=== PATIENT | male | born 1990 | race Caucasian/White ===

== ENCOUNTER 2016-09-19 06:41 | Emergency (ER) | payer MEDICAID ==
[2016-09-19 07:34] LABS: BASOPHIL % 0.4 % (0-2); PLATELET COUNT 351 x10^3mcL (130-400); RED CELL DISTRIBUTION WIDTH 14.2 % (11.5-14.5)
[2016-09-19 07:58] LABS: ALBUMIN 4.2 g/dL (3.4-5.0); ALKALINE PHOSPHATASE 58 U/L (46-116); ALT/SGPT 39 U/L (16-63); AST/SGOT 27 U/L (15-37); BILIRUBIN TOTAL 0.76 mg/dL (0.20-1.00); CALCIUM 9.6 mg/dL (8.5-10.1); CARBON DIOXIDE 25.7 mmol/L (21-32); CHLORIDE SERUM 101 mmol/L (98-107); CREATININE SERUM 0.8 mg/dL (0.7-1.3); GFR1 > 60 mL/min; GLUCOSE SERUM 93 mg/dL (74-106); LIPASE 129 IU/L (73-393); MAGNESIUM 1.8 mg/dL (1.8-2.4); POTASSIUM SERUM 3.7 mmol/L (3.5-5.1); SODIUM SERUM 137 mmol/L (136-145); TOTAL PROTEIN, SERUM 7.5 g/dL (6.4-8.2)
[2016-09-19 08:11] LABS: AMPHETAMINE QUAL UR NONE DETECTED (NEG <=1000)
[2016-09-19 09:11] VITALS: BP 137/81
== END 2016-09-19 09:11 | disposition home or self-care (01) ==
LOC: ED 06:41
PROVIDERS: Emergency Medicine
DX: F41.9 Anxiety disorder, unspecified (principal); R10.13 Epigastric pain; J45.909 Unspecified asthma, uncomplicated; F10.129 Alcohol abuse with intoxication, unspecified
CPT/HCPCS: G0480; J2405; J3490

== ENCOUNTER 2017-01-04 12:40 | Emergency (ER) | payer MEDICAID ==
[~2017-01-04] VITALS: Ht 165.1 cm; Wt 99.3 kg
[2017-01-04 13:59] LABS: BASOPHIL % 0.6 % (0-2); PLATELET COUNT 359 x10^3mcL (130-400); RED CELL DISTRIBUTION WIDTH 13.2 % (11.5-14.5)
[2017-01-04 14:06] LABS: CALCIUM 8.9 mg/dL (8.5-10.1); CARBON DIOXIDE 28.8 mmol/L (21-32); CHLORIDE SERUM 96 mmol/L (98-107); CREATININE SERUM 0.8 mg/dL (0.7-1.3); GFR1 > 60 mL/min; GLUCOSE SERUM 93 mg/dL (74-106); POTASSIUM SERUM 3.5 mmol/L (3.5-5.1); SODIUM SERUM 135 mmol/L (136-145)
[2017-01-04 14:10] LABS: ALBUMIN 4.2 g/dL (3.4-5.0); ALKALINE PHOSPHATASE 64 U/L (46-116); ALT/SGPT 39 U/L (16-63); AST/SGOT 43 U/L (15-37); BILIRUBIN TOTAL 1.8 mg/dL (0.20-1.00); TOTAL PROTEIN, SERUM 7.9 g/dL (6.4-8.2)
[2017-01-04 15:55] VITALS: BP 118/75
== END 2017-01-04 15:55 | disposition home or self-care (01) ==
LOC: ED 12:40
PROVIDERS: Emergency Medicine
DX: F10.129 Alcohol abuse with intoxication, unspecified (principal)
CPT/HCPCS: G0480; J2060; J2405; J3411; J3475; J3490; J7030

== ENCOUNTER 2017-02-08 20:44 | Inpatient (IN) | payer MEDICAID ==
[~2017-02-08] VITALS: Ht 165.1 cm; Wt 119.4 kg
[2017-02-08 23:33] LABS: BASOPHIL % 0.4 % (0-2); PLATELET COUNT 382 x10^3mcL (130-400); RED CELL DISTRIBUTION WIDTH 14.1 % (11.5-14.5)
[2017-02-08 23:42] LABS: CALCIUM 8.6 mg/dL (8.5-10.1); CARBON DIOXIDE 26.2 mmol/L (21-32); CHLORIDE SERUM 100 mmol/L (98-107); CREATININE SERUM 0.8 mg/dL (0.7-1.3); GFR1 > 60 mL/min; GLUCOSE SERUM 146 mg/dL (74-106); POTASSIUM SERUM 3.7 mmol/L (3.5-5.1); SODIUM SERUM 139 mmol/L (136-145)
[2017-02-08 23:46] LABS: ALBUMIN 4.4 g/dL (3.4-5.0); ALKALINE PHOSPHATASE 74 U/L (46-116); ALT/SGPT 45 U/L (16-63); AST/SGOT 34 U/L (15-37); BILIRUBIN TOTAL 0.7 mg/dL (0.20-1.00); LIPASE 167 IU/L (73-393); MAGNESIUM 2.3 mg/dL (1.8-2.4)
[2017-02-08 23:49] LABS: TOTAL PROTEIN, SERUM 8.4 g/dL (6.4-8.2)
[2017-02-09 02:32] LABS: UA SPECIFIC GRAVITY >=1.030 (1.005-1.035); microscopic required? YES; urine erythrocyte 1+ (NEGATIVE)
[2017-02-09 02:42] LABS: AMPHETAMINE QUAL UR NONE DETECTED (NEG <=1000)
[2017-02-09] MEDS ORDERED: ATIVAN1 MG PO (05:34)
[2017-02-09 08:29] VITALS: BP 137/73
[2017-02-09 08:32] VITALS: BP 120/60
[2017-02-09 12:56] VITALS: BP 129/64
[2017-02-09 17:14] VITALS: BP 114/70
[2017-02-09 21:03] VITALS: BP 126/69
[2017-02-10 05:56] VITALS: BP 120/78
[2017-02-10 05:57] LABS: BASOPHIL % 0.5 % (0-2); PLATELET COUNT 321 x10^3mcL (130-400)
[2017-02-10 06:17] LABS: CALCIUM 8.7 mg/dL (8.5-10.1); CARBON DIOXIDE 28.7 mmol/L (21-32); CHLORIDE SERUM 103 mmol/L (98-107); CREATININE SERUM 0.7 mg/dL (0.7-1.3); GFR1 > 60 mL/min; GLUCOSE SERUM 90 mg/dL (74-106); MAGNESIUM 2.2 mg/dL (1.8-2.4); POTASSIUM SERUM 3.9 mmol/L (3.5-5.1); SODIUM SERUM 139 mmol/L (136-145)
[2017-02-10 08:55] VITALS: BP 129/77
[2017-02-10 13:00] VITALS: BP 133/79
[2017-02-10 16:46] VITALS: BP 138/89
[2017-02-10] MEDS ORDERED: THERAGRAN-M1 TA4 PO (17:19)
[2017-02-10] MEDS ORDERED: THI100 PO (17:19)
[2017-02-10] MEDS ORDERED: FOL1 PO (17:19)
[2017-02-10] MEDS ORDERED: FLUOXETINE HYDR10 M1 PO (17:20)
[2017-02-10] MEDS ORDERED: BUSPIRONE HCL5 MG PO (17:21)
[2017-02-10] MEDS ORDERED: ATI1 PO (17:24)
[2017-02-10 18:39] VITALS: BP 138/89
== END 2017-02-10 20:37 | disposition home or self-care (01) | DRG 203 ==
LOC: ED 20:44 → DU 02-09 05:25 → ED 02-09 05:53 → DU 02-09 06:35
PROVIDERS: Emergency Medicine; ADMIT Family Medicine
DX: M94.0 Chondrocostal junction syndrome [Tietze] (principal); N17.0 Acute kidney failure with tubular necrosis; F10.239 Alcohol dependence with withdrawal, unspecified; E87.2 Acidosis; F41.9 Anxiety disorder, unspecified; Z68.41 Body mass index [BMI] 40.0-44.9, adult; E66.01 Morbid (severe) obesity due to excess calories
CPT/HCPCS: 83880; G0480; J2060; J2405; J3490; J7030

== ENCOUNTER 2017-05-18 21:48 | Inpatient (IN) | payer MEDICAID ==
[~2017-05-18] VITALS: Ht 165.1 cm; Wt 98.0 kg
[~2017-05-18 21:48] MED LIST: ATI1 PO; ATIVAN1 MG PO; BUSPIRONE HCL5 MG PO; FLUOXETINE HYDR10 M1 PO; FOL1 PO; THERAGRAN-M1 TA4 PO; THI100 PO
[2017-05-18 23:09] LABS: BASOPHIL % 0.5 % (0-2); PLATELET COUNT 309 x10^3mcL (130-400); RED CELL DISTRIBUTION WIDTH 13.1 % (11.5-14.5)
[2017-05-18 23:14] LABS: CALCIUM 8.5 mg/dL (8.5-10.1); CARBON DIOXIDE 28.3 mmol/L (21-32); CHLORIDE SERUM 102 mmol/L (98-107); CREATININE SERUM 0.7 mg/dL (0.7-1.3); GFR1 > 60 mL/min; GLUCOSE SERUM 114 mg/dL (74-106); POTASSIUM SERUM 3.6 mmol/L (3.5-5.1); SODIUM SERUM 144 mmol/L (136-145)
[2017-05-18 23:25] LABS: ALKALINE PHOSPHATASE 73 U/L (46-116); ALT/SGPT 37 U/L (16-63); AST/SGOT 33 U/L (15-37); BILIRUBIN TOTAL 0.88 mg/dL (0.20-1.00); TOTAL PROTEIN, SERUM 7.6 g/dL (6.4-8.2)
[2017-05-18 23:28] LABS: T3 TOTAL 0.84 ng/mL
[2017-05-18 23:40] LABS: C REACTIVE PROTEIN < 0.2 mg/dL (<=0.9)
[2017-05-18 23:42] LABS: FREE T4 0.95 ng/dL (0.76-1.46); FREE THYROXINE INDEX 2.7 ug/dL (1.4-4.5)
[2017-05-18 23:58] LABS: CK-MB 1.2 ng/mL (0-3.6)
[2017-05-19] MEDS ORDERED: ZOLOFT25 MG PO (00:38)
[2017-05-19 00:58] LABS: ERYTHROCYTE SED RATE 9 mm/hr (0-15)
[2017-05-19 01:35] VITALS: BP 120/76
[2017-05-19 02:00] LABS: UA SPECIFIC GRAVITY 1.025 (1.005-1.035); microscopic required? YES; urine erythrocyte TRACE (NEGATIVE)
[2017-05-19 02:10] LABS: MAGNESIUM 2.1 mg/dL (1.8-2.4); PHOSPHOROUS 3.4 mg/dL (2.5-4.9)
[2017-05-19 02:21] LABS: AMPHETAMINE QUAL UR NONE DETECTED (NEG <=1000)
[2017-05-19 05:48] VITALS: BP 118/67
[2017-05-19 06:41] LABS: CARBON DIOXIDE 26.3 mmol/L (21-32); CHLORIDE SERUM 104 mmol/L (98-107); CREATININE SERUM 0.6 mg/dL (0.7-1.3); GFR1 > 60 mL/min; GLUCOSE SERUM 89 mg/dL (74-106); MAGNESIUM 2.1 mg/dL (1.8-2.4); PHOSPHOROUS 3.3 mg/dL (2.5-4.9); POTASSIUM SERUM 3.4 mmol/L (3.5-5.1); SODIUM SERUM 142 mmol/L (136-145)
[2017-05-19 07:01] LABS: BASOPHIL % 0.3 % (0-2); PLATELET COUNT 274 x10^3mcL (130-400); RED CELL DISTRIBUTION WIDTH 12.9 % (11.5-14.5)
[2017-05-19 09:24] VITALS: BP 114/71
[2017-05-19 14:36] VITALS: BP 125/64
[2017-05-19 17:39] VITALS: BP 114/63
[2017-05-19 21:10] VITALS: BP 157/90
[2017-05-20 05:36] VITALS: BP 123/80
[2017-05-20 06:52] LABS: BASOPHIL % 0.3 % (0-2); PLATELET COUNT 241 x10^3mcL (130-400); RED CELL DISTRIBUTION WIDTH 12.9 % (11.5-14.5)
[2017-05-20 06:53] LABS: CALCIUM 8.8 mg/dL (8.5-10.1); CARBON DIOXIDE 26.2 mmol/L (21-32); CHLORIDE SERUM 102 mmol/L (98-107); CREATININE SERUM 0.7 mg/dL (0.7-1.3); GFR1 > 60 mL/min; GLUCOSE SERUM 83 mg/dL (74-106); MAGNESIUM 2.1 mg/dL (1.8-2.4); PHOSPHOROUS 3.5 mg/dL (2.5-4.9); POTASSIUM SERUM 3.5 mmol/L (3.5-5.1); SODIUM SERUM 139 mmol/L (136-145)
[2017-05-20 08:35] VITALS: BP 135/84
[2017-05-20 11:13] VITALS: Ht 165.1 cm; Wt 98.0 kg
[2017-05-20 11:33] VITALS: BP 135/84
[2017-05-20] MEDS ORDERED: THI100 PO (13:22)
[2017-05-20] MEDS ORDERED: FOL1 PO (13:22)
[2017-05-20] MEDS ORDERED: THERAGRAN-M1 TA4 PO (13:23)
[2017-05-20] MEDS ORDERED: LORAZEPAM1 MG PO (13:30)
[2017-05-20 14:00] VITALS: BP 141/81
[2017-05-20 16:35] VITALS: BP 136/79
== END 2017-05-20 20:46 | disposition home or self-care (01) | DRG 816 ==
LOC: ED 21:48 → DU 05-19 00:26 → MU 05-20 19:04
PROVIDERS: Family Medicine; Specialist
DX: T51.0X1A Toxic effect of ethanol, accidental (unintentional), initial encounter (principal); G92 Toxic encephalopathy; E87.2 Acidosis; F33.1 Major depressive disorder, recurrent, moderate; F10.229 Alcohol dependence with intoxication, unspecified; F10.239 Alcohol dependence with withdrawal, unspecified; R55 Syncope and collapse; E87.6 Hypokalemia; F41.0 Panic disorder [episodic paroxysmal anxiety]; F41.1 Generalized anxiety disorder; F40.8 Other phobic anxiety disorders; E78.5 Hyperlipidemia, unspecified; E66.9 Obesity, unspecified; Z68.35 Body mass index [BMI] 35.0-35.9, adult; Y90.8 Blood alcohol level of 240 mg/100 ml or more; Y92.009 Unspecified place in unspecified non-institutional (private) residence as the place of occurrence of the external cause
CPT/HCPCS: 36600; 83880; 84439; 94150; G0480; J2060; J3411; J3475; J3490; J7030; J7620; Q0092; Q9967

== ENCOUNTER 2017-09-26 05:53 | Inpatient (IN) | payer MEDICAID ==
[~2017-09-26] VITALS: Ht 165.1 cm; Wt 97.2 kg
[~2017-09-26 05:53] MED LIST changes: +LORAZEPAM1 MG PO; +ZOLOFT25 MG PO
[2017-09-26 07:11] LABS: CALCIUM 8.6 mg/dL (8.5-10.1); CARBON DIOXIDE 27.3 mmol/L (21-32); CHLORIDE SERUM 122 mmol/L (98-107); CREATININE SERUM 0.7 mg/dL (0.7-1.3); GFR1 > 60 mL/min; GLUCOSE SERUM 87 mg/dL (74-106); POTASSIUM SERUM 4.1 mmol/L (3.5-5.1); SODIUM SERUM 141 mmol/L (136-145)
[2017-09-26 07:16] LABS: BASOPHIL % 0.2 % (0-2); PLATELET COUNT 261 x10^3mcL (130-400); RED CELL DISTRIBUTION WIDTH 12.3 % (11.5-14.5)
[2017-09-26 07:28] LABS: T3 TOTAL 1.01 ng/mL
[2017-09-26 07:36] LABS: ALBUMIN 4.4 g/dL (3.4-5.0); ALKALINE PHOSPHATASE 78 U/L (46-116); ALT/SGPT 34 U/L (16-63); AST/SGOT 41 U/L (15-37); TOTAL PROTEIN, SERUM 7.9 g/dL (6.4-8.2)
[2017-09-26 07:50] LABS: MAGNESIUM 2.4 mg/dL (1.8-2.4); PHOSPHOROUS 3.6 mg/dL (2.5-4.9)
[2017-09-26 07:51] LABS: CHOLESTEROL/HDL RATIO 3.2
[2017-09-26 07:57] VITALS: BP 136/81
[2017-09-26 07:57] LABS: FREE T4 0.84 ng/dL (0.76-1.46); FREE THYROXINE INDEX 2.5 ug/dL (1.4-4.5)
[2017-09-26 08:02] LABS: UA SPECIFIC GRAVITY >=1.030 (1.005-1.035); microscopic required? YES; urine erythrocyte 1+ (NEGATIVE)
[2017-09-26 08:15] LABS: AMPHETAMINE QUAL UR NONE DETECTED (NEG <=1000)
[2017-09-26 13:39] VITALS: BP 115/51
[2017-09-26 17:53] VITALS: BP 135/70
[2017-09-26 19:15] VITALS: BP 124/61
[2017-09-26 20:50] VITALS: BP 124/68
[2017-09-27 05:44] VITALS: BP 105/66
[2017-09-27 06:37] LABS: CALCIUM 8.1 mg/dL (8.5-10.1); CARBON DIOXIDE 24.4 mmol/L (21-32); CHLORIDE SERUM 102 mmol/L (98-107); CREATININE SERUM 0.7 mg/dL (0.7-1.3); GFR1 > 60 mL/min; GLUCOSE SERUM 89 mg/dL (74-106); MAGNESIUM 2.2 mg/dL (1.8-2.4); PHOSPHOROUS 2.8 mg/dL (2.5-4.9); POTASSIUM SERUM 3.6 mmol/L (3.5-5.1); SODIUM SERUM 138 mmol/L (136-145)
[2017-09-27 08:12] LABS: BASOPHIL % 0.2 % (0-2); PLATELET COUNT 205 x10^3mcL (130-400); RED CELL DISTRIBUTION WIDTH 12.8 % (11.5-14.5)
[2017-09-27 10:00] VITALS: BP 116/68
[2017-09-27 12:47] VITALS: BP 107/63
[2017-09-27 17:46] VITALS: BP 96/62
[2017-09-27 21:39] VITALS: BP 118/69
[2017-09-28 05:57] VITALS: BP 109/73
[2017-09-28 06:32] LABS: BASOPHIL % 0.1 % (0-2); PLATELET COUNT 191 x10^3mcL (130-400); RED CELL DISTRIBUTION WIDTH 12.9 % (11.5-14.5)
[2017-09-28 06:56] LABS: CALCIUM 8.6 mg/dL (8.5-10.1); CARBON DIOXIDE 26.1 mmol/L (21-32); CHLORIDE SERUM 107 mmol/L (98-107); CREATININE SERUM 0.7 mg/dL (0.7-1.3); GFR1 > 60 mL/min; GLUCOSE SERUM 92 mg/dL (74-106); MAGNESIUM 2.2 mg/dL (1.8-2.4); PHOSPHOROUS 3.5 mg/dL (2.5-4.9); POTASSIUM SERUM 3.8 mmol/L (3.5-5.1); SODIUM SERUM 142 mmol/L (136-145)
[2017-09-28] MEDS ORDERED: BUPROPION HCL100 MG PO (09:27)
[2017-09-28 11:00] VITALS: BP 104/61
[2017-09-28 11:53] VITALS: BP 104/61
== END 2017-09-28 13:49 | disposition home or self-care (01) | DRG 775 ==
LOC: ED 05:53 → DU 06:37 → MU 09-28 08:09
PROVIDERS: Emergency Medicine; Family Medicine
DX: F10.129 Alcohol abuse with intoxication, unspecified (principal); N17.0 Acute kidney failure with tubular necrosis; G92 Toxic encephalopathy; J45.909 Unspecified asthma, uncomplicated; F32.9 Major depressive disorder, single episode, unspecified; E86.0 Dehydration; E87.8 Other disorders of electrolyte and fluid balance, not elsewhere classified; D72.829 Elevated white blood cell count, unspecified; Y90.0 Blood alcohol level of less than 20 mg/100 ml; F41.1 Generalized anxiety disorder; R80.9 Proteinuria, unspecified; R31.9 Hematuria, unspecified; Z79.899 Other long term (current) drug therapy; Z68.35 Body mass index [BMI] 35.0-35.9, adult
CPT/HCPCS: 83880; 84439; G0480; J2060; J3411; J3475; J3490; J7030; Q0092

== ENCOUNTER 2017-10-18 12:54 | Emergency (ER) | payer MEDICAID ==
[~2017-10-18] VITALS: Ht 160 cm; Wt 97.1 kg
[~2017-10-18 12:54] MED LIST changes: +BUPROPION HCL100 MG PO
[2017-10-18 13:05] VITALS: Ht 160 cm; Wt 97.1 kg
[2017-10-18 13:48] LABS: BASOPHIL % 0.4 % (0-2); PLATELET COUNT 362 x10^3mcL (130-400); RED CELL DISTRIBUTION WIDTH 13.6 % (11.5-14.5)
[2017-10-18 13:57] LABS: CALCIUM 8.5 mg/dL (8.5-10.1); CARBON DIOXIDE 29.4 mmol/L (21-32); CHLORIDE SERUM 102 mmol/L (98-107); CREATININE SERUM 0.8 mg/dL (0.7-1.3); GFR1 > 60 mL/min; GLUCOSE SERUM 103 mg/dL (74-106); POTASSIUM SERUM 3.8 mmol/L (3.5-5.1); SODIUM SERUM 142 mmol/L (136-145)
[2017-10-18 14:07] LABS: ALBUMIN 4.1 g/dL (3.4-5.0); ALKALINE PHOSPHATASE 76 U/L (46-116); AMYLASE 46 U/L (25-115); AST/SGOT 28 U/L (15-37); BILIRUBIN TOTAL 1.2 mg/dL (0.20-1.00); HDL CHOLESTEROL 58 mg/dL (40-60); LIPASE 119 IU/L (73-393); MAGNESIUM 2.2 mg/dL (1.8-2.4); T4(THYROXINE) 6.8 ug/dL (4.7-13.3); TOTAL PROTEIN, SERUM 7.8 g/dL (6.4-8.2)
[2017-10-18 14:30] LABS: CHOLESTEROL 215 mg/dL (<200)
[2017-10-18 14:47] LABS: microscopic required? NO
[2017-10-18 14:57] LABS: UA SPECIFIC GRAVITY 1.015 (1.005-1.035); urine erythrocyte NEGATIVE (NEGATIVE)
[2017-10-18 15:09] LABS: ALT/SGPT 41 U/L (16-63)
[2017-10-18 15:54] LABS: AMPHETAMINE QUAL UR NONE DETECTED (See below)
[2017-10-18 16:03] VITALS: BP 120/74
== END 2017-10-18 16:03 | disposition home or self-care (01) ==
LOC: ED 12:54
PROVIDERS: Emergency Medicine
DX: F10.229 Alcohol dependence with intoxication, unspecified (principal); I47.1 Supraventricular tachycardia; J45.909 Unspecified asthma, uncomplicated; E66.01 Morbid (severe) obesity due to excess calories
CPT/HCPCS: 83880; G0480; J3490

== ENCOUNTER 2017-11-04 10:27 | Emergency (ER) | payer MEDICAID ==
[~2017-11-04] VITALS: Ht 165.1 cm; Wt 98.2 kg
[2017-11-04 10:35] VITALS: Ht 165.1 cm; Wt 98.2 kg
[2017-11-04 12:34] VITALS: BP 100/65
== END 2017-11-04 12:34 | disposition home or self-care (01) ==
LOC: ED 10:27
DX: F41.0 Panic disorder [episodic paroxysmal anxiety] (principal); J45.909 Unspecified asthma, uncomplicated; F10.20 Alcohol dependence, uncomplicated; E66.01 Morbid (severe) obesity due to excess calories

== ENCOUNTER 2018-02-04 16:38 | Emergency (ER) | payer MEDICAID ==
[~2018-02-04] VITALS: Ht 165.1 cm; Wt 102.7 kg
[2018-02-04 16:43] VITALS: Ht 165.1 cm; Wt 102.7 kg
[2018-02-04 17:25] LABS: BASOPHIL % 0.1 % (0-2); PLATELET COUNT 299 x10^3mcL (130-400); RED CELL DISTRIBUTION WIDTH 11.9 % (11.5-14.5)
[2018-02-04 17:41] LABS: CALCIUM 9.5 mg/dL (8.5-10.1); CARBON DIOXIDE 28.4 mmol/L (21-32); CHLORIDE SERUM 101 mmol/L (98-107); CREATININE SERUM 0.9 mg/dL (0.7-1.3); GFR1 > 60 mL/min; GLUCOSE SERUM 89 mg/dL (74-106); POTASSIUM SERUM 4.2 mmol/L (3.5-5.1); SODIUM SERUM 139 mmol/L (136-145)
[2018-02-04 17:45] LABS: ALBUMIN 4.8 g/dL (3.4-5.0); ALKALINE PHOSPHATASE 59 U/L (46-116); ALT/SGPT 32 U/L (16-63); AST/SGOT 17 U/L (15-37); BILIRUBIN TOTAL 3.08 mg/dL (0.20-1.00); LIPASE 129 IU/L (73-393)
[2018-02-04 17:58] LABS: TOTAL PROTEIN, SERUM 8.4 g/dL (6.4-8.2)
[2018-02-04 18:47] VITALS: BP 115/74
== END 2018-02-04 18:50 | disposition home or self-care (01) ==
LOC: ED 16:38
PROVIDERS: Emergency Medicine
DX: J45.909 Unspecified asthma, uncomplicated (principal); K29.00 Acute gastritis without bleeding; F41.9 Anxiety disorder, unspecified; F40.00 Agoraphobia, unspecified
CPT/HCPCS: 36415; Q0092

== ENCOUNTER 2018-03-20 00:57 | Emergency (ER) | payer MEDICAID ==
[~2018-03-20] VITALS: Ht 165.1 cm; Wt 98.9 kg
[2018-03-20 01:03] VITALS: BP 153/90; Ht 165.1 cm; Wt 98.9 kg
== END 2018-03-20 02:03 | disposition left against medical advice (07) ==
LOC: ED 00:57
DX: Z53.21 Procedure and treatment not carried out due to patient leaving prior to being seen by health care provider (principal)

== ENCOUNTER 2018-11-19 07:31 | Emergency (ER) | payer MEDICAID ==
[~2018-11-19] VITALS: Ht 165.1 cm; Wt 93.4 kg
[2018-11-19 07:35] VITALS: Ht 165.1 cm; Wt 93.4 kg
[2018-11-19 08:28] LABS: CALCIUM 9.7 mg/dL (8.5-10.1); CARBON DIOXIDE 28.4 mmol/L (21-32); CHLORIDE SERUM 100 mmol/L (98-107); CREATININE SERUM 0.7 mg/dL (0.7-1.3); GFR1 > 60 mL/min; GLUCOSE SERUM 101 mg/dL (74-106); POTASSIUM SERUM 3.6 mmol/L (3.5-5.1); SODIUM SERUM 141 mmol/L (136-145)
[2018-11-19 08:32] LABS: ALBUMIN 4.3 g/dL (3.4-5.0); ALKALINE PHOSPHATASE 80 U/L (46-116); ALT/SGPT 60 U/L (16-63); AST/SGOT 54 U/L (15-37); BILIRUBIN TOTAL 1.4 mg/dL (0.20-1.00); TOTAL PROTEIN, SERUM 7.6 g/dL (6.4-8.2)
[2018-11-19 08:34] LABS: BASOPHIL % 0.4 % (0-2); PLATELET COUNT 234 x10^3mcL (130-400); RED CELL DISTRIBUTION WIDTH 13.9 % (11.5-14.5)
[2018-11-19 09:05] LABS: AMPHETAMINE QUAL UR NONE DETECTED (See below)
[2018-11-19 16:40] VITALS: BP 127/68
== END 2018-11-19 16:40 | disposition home or self-care (01) ==
LOC: ED 07:31
PROVIDERS: Emergency Medicine
DX: F10.120 Alcohol abuse with intoxication, uncomplicated (principal); J45.909 Unspecified asthma, uncomplicated; F41.9 Anxiety disorder, unspecified; F40.00 Agoraphobia, unspecified; I47.1 Supraventricular tachycardia
CPT/HCPCS: 82962; G0480; J2060; J3411; J7030

== ENCOUNTER 2018-12-19 02:21 | Emergency (ER) | payer MEDICAID ==
[~2018-12-19] VITALS: Ht 165.1 cm; Wt 93.2 kg
[2018-12-19 07:17] VITALS: BP 119/69
== END 2018-12-19 07:17 | disposition home or self-care (01) ==
LOC: ED 02:21
DX: S61.213A Laceration without foreign body of left middle finger without damage to nail, initial encounter (principal); J45.909 Unspecified asthma, uncomplicated; F41.9 Anxiety disorder, unspecified; F10.10 Alcohol abuse, uncomplicated; Z76.0 Encounter for issue of repeat prescription; W26.0XXA Contact with knife, initial encounter; Y93.89 Activity, other specified; Y92.89 Other specified places as the place of occurrence of the external cause; Y99.8 Other external cause status
CPT/HCPCS: 90715

== ENCOUNTER 2019-03-16 05:48 | Emergency (ER) | payer MEDICAID ==
[~2019-03-16] VITALS: Ht 165.1 cm; Wt 92.1 kg
[2019-03-16 05:52] VITALS: Ht 165.1 cm; Wt 92.1 kg
[2019-03-16 06:58] VITALS: BP 114/82
== END 2019-03-16 06:58 | disposition home or self-care (01) ==
LOC: ED 05:48
DX: M25.811 Other specified joint disorders, right shoulder (principal); F41.9 Anxiety disorder, unspecified; J45.909 Unspecified asthma, uncomplicated
CPT/HCPCS: J1885

== ENCOUNTER 2019-04-17 01:54 | Emergency (ER) | payer MEDICAID ==
[~2019-04-17] VITALS: Ht 167.6 cm; Wt 92.5 kg
[2019-04-17 02:19] VITALS: Ht 167.6 cm; Wt 92.5 kg
[2019-04-17 05:49] LABS: BASOPHIL % 0.5 % (0-2); PLATELET COUNT 305 x10^3mcL (130-400); RED CELL DISTRIBUTION WIDTH 13.8 % (11.5-14.5)
[2019-04-17 06:02] LABS: CALCIUM 8.7 mg/dL (8.5-10.1); CARBON DIOXIDE 27.9 mmol/L (21-32); CHLORIDE SERUM 104 mmol/L (98-107); CREATININE SERUM 0.8 mg/dL (0.7-1.3); GFR1 > 60 mL/min; GLUCOSE SERUM 103 mg/dL (74-106); POTASSIUM SERUM 3.7 mmol/L (3.5-5.1); SODIUM SERUM 143 mmol/L (136-145)
[2019-04-17 06:06] LABS: ALBUMIN 4.2 g/dL (3.4-5.0); ALKALINE PHOSPHATASE 80 U/L (46-116); ALT/SGPT 30 U/L (16-63); AST/SGOT 20 U/L (15-37); BILIRUBIN TOTAL 0.57 mg/dL (0.20-1.00); LIPASE 162 IU/L (73-393); TOTAL PROTEIN, SERUM 7.6 g/dL (6.4-8.2)
[2019-04-17 07:36] LABS: AMPHETAMINE QUAL UR NONE DETECTED (See below)
[2019-04-17 07:47] VITALS: BP 115/58
== END 2019-04-17 07:47 | disposition home or self-care (01) ==
LOC: ED 01:54
PROVIDERS: Emergency Medicine
DX: S00.31XA Abrasion of nose, initial encounter (principal); F10.239 Alcohol dependence with withdrawal, unspecified; J45.909 Unspecified asthma, uncomplicated; W18.30XA Fall on same level, unspecified, initial encounter; Y93.89 Activity, other specified; Y92.89 Other specified places as the place of occurrence of the external cause; Y99.8 Other external cause status
CPT/HCPCS: G0480; J2060; J2405; J7030

== ENCOUNTER 2019-09-21 05:49 | Emergency (ER) | payer OTHER ==
[~2019-09-21] VITALS: Ht 165.1 cm; Wt 74.8 kg
[~2019-09-21 05:49] MED LIST changes: +NEU300 PO
[2019-09-21 06:00] VITALS: Ht 165.1 cm; Wt 74.8 kg
[2019-09-21 08:16] LABS: AMPHETAMINE QUAL UR NONE DETECTED (See below)
[2019-09-21 08:47] VITALS: BP 135/66
== END 2019-09-21 08:47 | disposition home or self-care (01) ==
LOC: ED 05:49
PROVIDERS: Emergency Medicine
DX: G92 Toxic encephalopathy (principal); J45.909 Unspecified asthma, uncomplicated
CPT/HCPCS: 36415; 82962; G0480

== ENCOUNTER 2019-11-10 06:14 | Emergency (ER) | payer OTHER ==
[~2019-11-10] VITALS: Ht 165.1 cm; Wt 91.6 kg
[2019-11-10 06:22] VITALS: Ht 165.1 cm; Wt 91.6 kg
[2019-11-10 09:29] VITALS: BP 105/54
== END 2019-11-10 09:30 | disposition home or self-care (01) ==
LOC: ED 06:14
DX: M51.27 Other intervertebral disc displacement, lumbosacral region (principal); J45.909 Unspecified asthma, uncomplicated
CPT/HCPCS: J1885; Q9967

== ENCOUNTER 2019-11-12 19:18 | Emergency (ER) | payer OTHER ==
[~2019-11-12] VITALS: Ht 154.9 cm; Wt 93.2 kg
[2019-11-12 19:29] VITALS: Ht 154.9 cm; Wt 93.2 kg
[2019-11-12 20:49] VITALS: BP 120/58
== END 2019-11-12 20:49 | disposition home or self-care (01) ==
LOC: ED 19:18
DX: R25.1 Tremor, unspecified (principal); H53.8 Other visual disturbances; R00.2 Palpitations; R20.2 Paresthesia of skin; J45.909 Unspecified asthma, uncomplicated; F10.10 Alcohol abuse, uncomplicated
CPT/HCPCS: 82962

== ENCOUNTER 2019-12-19 21:27 | Emergency (ER) | payer OTHER ==
[~2019-12-19] VITALS: Ht 165.1 cm; Wt 90.7 kg
[2019-12-19 21:39] VITALS: Ht 165.1 cm; Wt 90.7 kg
[2019-12-20 01:23] VITALS: BP 149/83
== END 2019-12-20 01:37 | disposition home or self-care (01) ==
LOC: ED 21:27
DX: F19.129 Other psychoactive substance abuse with intoxication, unspecified (principal); Z72.89 Other problems related to lifestyle

== ENCOUNTER 2020-04-03 16:19 | Emergency (ER) | payer OTHER ==
[~2020-04-03] VITALS: Ht 165.1 cm; Wt 95.3 kg
[2020-04-03 16:39] VITALS: Ht 165.1 cm; Wt 95.3 kg
[2020-04-03 17:32] VITALS: BP 112/68
== END 2020-04-03 17:33 | disposition home or self-care (01) ==
LOC: ED 16:19
DX: F41.9 Anxiety disorder, unspecified (principal); G47.00 Insomnia, unspecified; J45.909 Unspecified asthma, uncomplicated; F10.10 Alcohol abuse, uncomplicated

== ENCOUNTER 2020-04-13 16:30 | Emergency (ER) | payer OTHER ==
[~2020-04-13] VITALS: Ht 167.6 cm; Wt 93.9 kg
[2020-04-13 17:19] VITALS: Ht 167.6 cm; Wt 93.9 kg
[2020-04-13 20:28] LABS: BASOPHIL % 0.6 % (0.2-1.5); PLATELET COUNT 254 x10^3mcL (152-348); RED CELL DISTRIBUTION WIDTH 13.1 % (12.1-16.2)
[2020-04-13 20:53] LABS: CALCIUM 8.7 mg/dL (8.5-10.1); CARBON DIOXIDE 23.2 mmol/L (21-32); CHLORIDE SERUM 95 mmol/L (98-107); CREATININE SERUM 0.7 mg/dL (0.7-1.3); GFR1 > 60 mL/min; GLUCOSE SERUM 98 mg/dL (74-106); POTASSIUM SERUM 3.9 mmol/L (3.5-5.1); SODIUM SERUM 136 mmol/L (136-145)
[2020-04-13 20:57] LABS: ALBUMIN 4.7 g/dL (3.4-5.0); ALKALINE PHOSPHATASE 64 U/L (46-116); ALT/SGPT 35 U/L (16-63); AST/SGOT 35 U/L (15-37); BILIRUBIN TOTAL 1.7 mg/dL (0.20-1.00)
[2020-04-13 20:59] LABS: TOTAL PROTEIN, SERUM 8.3 g/dL (6.4-8.2)
[2020-04-13 21:53] VITALS: BP 132/83
== END 2020-04-13 23:30 | disposition home or self-care (01) ==
LOC: ED 16:30
PROVIDERS: Emergency Medicine
DX: L03.012 Cellulitis of left finger (principal)
CPT/HCPCS: J0696; J2001